=== PATIENT | female | born 1995 | race African-American/Black ===

== ENCOUNTER 2016-11-15 13:20 | Emergency (ER) | payer OTHER ==
[~2016-11-15] VITALS: Ht 162.6 cm; Wt 75.0 kg
[2016-11-15] MEDS ORDERED: MORPHINE SULFATE 4 MG/ML CPJ (NOT FOR IM USE) IV ONE ×3 (14:30→18:00)
[2016-11-15] MEDS ORDERED: ONDANSETRON HCL 4MG/2ML VIAL IV ONE ×2 (14:30)
[2016-11-15] MEDS ORDERED: METHOCARBAMOL 500MG TABLET PO ONE (16:15)
[2016-11-15 20:17] VITALS: BP 125/68
== END 2016-11-15 20:20 | disposition home or self-care (01) ==
LOC: ER 14:53
DX: S43.004A Unspecified dislocation of right shoulder joint, initial encounter (principal); F12.10 Cannabis abuse, uncomplicated; W18.39XA Other fall on same level, initial encounter; Y93.89 Activity, other specified; Y99.8 Other external cause status; Y92.89 Other specified places as the place of occurrence of the external cause
CPT/HCPCS: 23650; 73030; 73060; 96374; 96375; 96376; 99284; J2270; J2405; Z7610; L3670

== ENCOUNTER 2017-01-19 15:47 | Emergency (ER) | payer OTHER ==
[~2017-01-19] VITALS: Ht 167.6 cm; Wt 68.0 kg
[2017-01-19] MEDS ORDERED: LIDOCAINE HCL 1% 20ML VIAL (Pyxis) INJ INFIL ONE (17:15)
[2017-01-19] MEDS ORDERED: MORPHINE SULFATE 4 MG/ML CPJ (NOT FOR IM USE) IV ONE ×2 (17:15→18:00)
[2017-01-19 19:20] VITALS: BP 114/56
== END 2017-01-19 20:09 | disposition short-term general hospital (02) ==
LOC: ER 16:00
DX: S01.511A Laceration without foreign body of lip, initial encounter (principal); W22.12XA Striking against or struck by front passenger side automobile airbag, initial encounter; V47.6XXA Car passenger injured in collision with fixed or stationary object in traffic accident, initial encounter; Y93.89 Activity, other specified; Y92.488 Other paved roadways as the place of occurrence of the external cause; F12.90 Cannabis use, unspecified, uncomplicated
CPT/HCPCS: 12013; 81025; 96374; 96376; 99285; J2270; J3490; X7700; Z7610